=== PATIENT | female | born 1970 | race Caucasian/White ===

== ENCOUNTER 2017-11-05 20:04 | Emergency (ER) | payer OTHER, BC ==
[2017-11-05] MEDS ORDERED: Lidocaine/EPINEPHrine/Tetracaine Soln 1 ML TOP ONE (20:24)
[2017-11-05] MEDS ORDERED: Lidocaine 1% 10 ML MDV INJECT ONE (20:24)
--- NOTE | 2017-11-05 20:29 | EDM.PDOC ---
ED HPI GENERAL MEDICAL PROBLEM - General Chief Complaint: Upper Extremity Injury/Pain Stated Complaint: CUT RIGHT HAND ON GLASS Time Seen by Provider: 11/05/17 20:17 Source of Information: Reports: Patient History Limitations: Reports: No Limitations - History of Present Illness INITIAL COMMENTS - FREE TEXT/NARRATIVE: The patient presents with a cut to her right hand. 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 She cannot flex her right finger. I am concerned she may have cut her flexor tendon. She is right handed. Her tetanus it up to date. Onset: Sudden Duration: Minutes: Location: Reports: Upper Extremity, Right (Hand) Quality: Reports: Sharp Severity: Moderate Improves with: Reports: None Worsens with: Reports: None Associated Symptoms: Reports: No Other Symptoms Right Hand Pain Score (Numeric/FACES): 5 - Related Data Allergies Allergy/AdvReac Type Severity Reaction Status Date / Time Penicillins Allergy Rash Verified 11/05/17 20:16 Home Meds: Home Meds Levothyroxine Sodium 137 mcg PO DAILY 10/24/13 [History] Levothyroxine 150 mcg PO DAILY 11/05/17 [History] Review of Systems - Review of Systems Review Of Systems: See Below Constitutional: Reports: No Symptoms Eyes: Reports: No Symptoms Ears: Reports: No Symptoms Nose: Reports: No Symptoms Mouth/Throat: Reports: No Symptoms Respiratory: Reports: No Symptoms Cardiovascular: Reports: No Symptoms GI/Abdominal: Reports: No Symptoms Genitourinary: Reports: No Symptoms Musculoskeletal: Reports: Other (laceration to right hand) ED EXAM, GENERAL - Physical Exam Exam: See Below Exam Limited By: No Limitations General Appearance: Alert, No Apparent Distress Ears: Normal External Exam Nose: Normal Inspection Head: Atraumatic, Normocephalic Neck: Normal Inspection Respiratory/Chest: No Respiratory Distress Extremities: Other (3cm laceration to the right hand on the volar aspect just below the MCP joing. Good sensation and capillary refill. The patient cannot flex her finger.) ED TRAUMA EXTREMITY PROCEDURES - Laceration/Wound Repair Right Hand Lac/Wound Length In cm: 3 Appearance: Subcutaneous, Linear, Clean Distal NVT: Neuro & Vascular Intact, Other (Flexor tendon laceration) Anesthetic Type: Local Local Anesthesia - Lidocaine (Xylocaine): 1% Plain Skin Prep: Saline Exploration/Debridement/Repair: Wound Explored, In a Bloodless Field, Explored to Base Closed With: Sutures Suture Size: 4-0 # of Sutures: 4 Suture Type: Nylon, Interrupted, Simple Tetanus Status Addressed: Yes Complications: No - Splinting Right Upper Extremity Splint Site: Right hand Pre-Procedure NV Status: Normal Post-Procedure NV Status: Normal Splint Material: Fiberglass Splint Design: Volar Applied & Form Fitted By: Provider Provider Post-Splint Application NV Check: NV Status Normal, Good Position Complications: No Course - Vital Signs Last Recorded V/S: Last Vital Signs Temp 97.8 F 11/05/17 20:19 Pulse 82 11/05/17 20:19 Resp 18 11/05/17 20:19 BP 110/79 11/05/17 20:19 Pulse Ox 98 11/05/17 20:19 - Orders/Labs/Meds Orders: Active Orders 24 hr Category Date Time Status Hand Comp Min 3V Rt [CR] Stat Exams 11/05/17 20:20 Taken Meds: Medications Discontinued Medications Generic Name Dose Route Start Last Admin Trade Name Freq PRN Reason Stop Dose Admin Lidocaine HCl 10 ml 11/05/17 20:24 11/05/17 20:40 Xylocaine 1% INJECT 11/05/17 20:25 10 ml ONETIME ONE Administration Lidocaine/Tetracaine 1 ml 11/05/17 20:24 11/05/17 20:40 Let Soln TOP 11/05/17 20:25 1 ml ONETIME ONE Administration - Re-Assessments/Exams Free Text/Narrative Re-Assessment/Exam: 11/05/17 20:28 I will get an x-ray to look for any glass. I will also anaesthetize the wound and explore it for FB and try to find the tendon. I will close the wound an call and hand surgeon. 11/05/17 21:12 There was no FB on x-ray and none were visualized while suturing. The flexor tendon is cut. I have a call out to [facility] Rodríguez in [place]. 11/05/17 21:[address] Scott the orthopedic surgeon construction rigger in [place] and he wanted the patient to call his office tomorrow to get in with one of their hand surgeons. Departure - Departure Time of Disposition: 21:30 Disposition: Home, Self-Care 01 Condition: Good Clinical Impression: Laceration of right hand Qualifiers: Encounter type: initial encounter Foreign body presence: without foreign body Qualified Code(s): S61.411A - Laceration without foreign body of right hand, initial encounter Flexor tendon laceration of right hand with open wound Qualifiers: Encounter type: initial encounter Qualified Code(s): S66.821A - Laceration of other specified muscles, fascia and tendons at wrist and hand level, right hand , initial encounter; S61.409A - Unspecified open wound of unspecified hand, initial encounter - Discharge Information Referrals: Sandie Atwood PA [Primary Care Provider] - Helio Scott MD [Ordering Only Provider] - 1 Day Forms: ED Department Discharge Additional Instructions: Call Dr Scott's office at the [facility] in [place] and let them know you have a flexor tendon injury in your hand and you need to see one of their hand surgeons. Soak your hand in warm soapy water 2 times per day and apply antibiotic ointment after. Then splint your hand after. Please return if you have any other problems. - My Orders Last 24 Hours: My Active Orders 11/05/17 20:20 Hand Comp Min 3V Rt [CR] Stat - Assessment/Plan Last 24 Hours: My Active Orders 11/05/17 20:20 Hand Comp Min 3V Rt [CR] Stat
[2017-11-05 21:27] VITALS: BP 110/79
--- NOTE | 2017-11-06 08:54 | CR ---
Right hand: Four views of the right hand were obtained. Comparison: No prior hand exam. Joint spaces are preserved. No fracture, dislocation or other bony abnormality is seen. No radiopaque foreign body is seen within the soft tissues. Impression: 1. No abnormality is appreciated on right hand exam Diagnostic code #1
== END 2017-11-05 21:40 | disposition home or self-care (01) ==
LOC: JD.ED 20:04
DX: S61.411A Laceration without foreign body of right hand, initial encounter (principal); S66.821A Laceration of other specified muscles, fascia and tendons at wrist and hand level, right hand, initial encounter; Z88.0 Allergy status to penicillin; Z79.899 Other long term (current) drug therapy; W25.XXXA Contact with sharp glass, initial encounter; Y99.0 Civilian activity done for income or pay
CPT/HCPCS: 12002; 29125; 73130; 99284; A9270; 99283-25

== ENCOUNTER 2021-11-08 08:00 | Emergency (ER) | payer BC ==
[2021-11-08] MEDS ORDERED: Sodium Chloride 0.9% 10 ML Syringe FLUSH PRN ×2 (08:19→10:05)
[2021-11-08] MEDS ORDERED: Diltiazem 50 MG/10 ML SDV IVPUSH ONE (08:21)
[2021-11-08] MEDS ORDERED: Sodium Chloride 0.9% 1,000 ML IV SCH ×3 (08:30→12:15)
[2021-11-08] MEDS ORDERED: Diltiazem 100 MG in Sodium Chloride 0.9% 100 ML IV SCH (08:30)
[2021-11-08 09:31] VITALS: BP 146/90; PULSE 150
[2021-11-08] MEDS ORDERED: Iopamidol 755 Mg/ML 100 ML Bottle IVPUSH ONE (10:05)
[2021-11-08] MEDS ORDERED: Sodium Chloride 0.9% 100 ML IV SCH (10:15)
[2021-11-08] MEDS ORDERED: Methimazole 5 MG Tab PO ONE (10:30)
[2021-11-08] MEDS ORDERED: Hydrocortisone Sodium Succinate 100 MG/2 ML SDV IVPUSH ONE (11:58)
[2021-11-08] MEDS ORDERED: Potassium Chloride 10 MEQ in Premix Bag 1 BAG IV SCH (12:15)
== END 2021-11-08 12:50 ==
LOC: JD.ED 08:00
DX: C34.91 Malignant neoplasm of unspecified part of right bronchus or lung (principal); I48.91 Unspecified atrial fibrillation; E87.6 Hypokalemia; E05.91 Thyrotoxicosis, unspecified with thyrotoxic crisis or storm; E03.9 Hypothyroidism, unspecified; Z88.0 Allergy status to penicillin; Z79.899 Other long term (current) drug therapy; Z72.0 Tobacco use; Z86.16 Personal history of COVID-19; Z20.822 Contact with and (suspected) exposure to COVID-19
CPT/HCPCS: 36415; 71045; 71275; 74177; 80053; 83605; 83735; 84439; 84443; 84484; 85025; 85610; 85730; 87040; 87635; 93005; 96365; 96366; 96375; 96376; 99285; A9270; J1720; J3480; J3490; J7030; Q9967; U0002

== ENCOUNTER 2021-11-13 11:04 | Emergency (ER) | payer BC ==
[2021-11-13] MEDS ORDERED: Sodium Chloride 0.9% 1,000 ML IV SCH (12:00)
[2021-11-13] MEDS ORDERED: Sodium Chloride 0.9% 10 ML Syringe FLUSH PRN ×2 (12:00→15:22)
[2021-11-13] MEDS ORDERED: Potassium Chloride 20 MEQ Tab.ER PO ONE (12:01)
[2021-11-13] MEDS: Potassium Chloride 10 MEQ in Premix Bag 1 BAG IV SCH ×4 (12:58→16:22)
[2021-11-13] MEDS ORDERED: Iopamidol 755 Mg/ML 100 ML Bottle IVPUSH ONE (15:22)
[2021-11-13] MEDS ORDERED: Sodium Chloride 0.9% 100 ML IV SCH (15:30)
[2021-11-13] MEDS ORDERED: Potassium Chloride 10 MEQ in Premix Bag 1 BAG IV ONE (17:49)
[2021-11-13 18:42] VITALS: BP 153/102; PULSE 68
== END 2021-11-13 18:34 ==
LOC: JD.ED 11:04
DX: C34.91 Malignant neoplasm of unspecified part of right bronchus or lung (principal); E87.6 Hypokalemia; R77.8 Other specified abnormalities of plasma proteins; R09.02 Hypoxemia; I48.91 Unspecified atrial fibrillation; E03.9 Hypothyroidism, unspecified; Z86.16 Personal history of COVID-19; Z88.0 Allergy status to penicillin; Z87.891 Personal history of nicotine dependence
CPT/HCPCS: 36415; 71275; 80053; 83880; 84484; 93005; 96365; 96366; 96376; 99285; A9270; J3480; J3490; J7030; Q9967; 93010